=== PATIENT | female | born 1995 | race Caucasian/White ===

== ENCOUNTER 2016-11-13 23:07 | Observation (INO) | payer BC ==
[~2016-11-13] VITALS: Ht 160 cm; Wt 65.8 kg
[2016-11-13] MEDS ORDERED: diphenhdrAMINE HCL 50 MG/1 ML VL ONE (23:11)
[2016-11-13] MEDS ORDERED: diphenhdrAMINE HCL 50 MG/1 ML VL IM ONE (23:15)
[2016-11-13] MEDS ORDERED: SODIUM CHLORIDE 0.9% 1,000 ML IV ONE (23:15)
[2016-11-13] MEDS ORDERED: LORazepam 2MG/ML-1ML VIAL IM ONE (23:15)
[2016-11-14 00:18] LABS: Basophils # (auto) 0 uL; Basophils % (auto) 0.5 % (0.0-2.0); Eosinophils # (auto) 0 uL; Hematocrit 38.6 % (36.0-46.0); Lymphocytes # (auto) 0.5 uL; Lymphocytes % (auto) 8.5 % (10.0-50.0); Mean Corpuscular Hemoglobin 29.9 pg (28.0-32.0); Mean Corpuscular Hgb Conc. 33.8 g/dL (32.0-36.0); Mean Corpuscular Volume 88.5 fL (80.0-100.0); Mean Platelet Volume 10.1 fL (7.4-10.4); Monocytes # (auto) 0.5 uL; Monocytes % (auto) 8.8 % (0.0-12.0); Neutrophils # (auto) 4.5 uL; Neutrophils % (auto) 82.2 % (37.0-80.0); Platelet Count (auto) 199 10^3/uL (140-450); Red Cell Distribution Width 12.1 % (11.6-16.0); White Blood Cell 5.5 10^3/uL (4.4-10.8)
[2016-11-14 00:28] LABS: Albumin 4.1 g/dL (3.4-5.0); Calcium 8.3 mg/dL (8.5-10.1); Potassium 3.2 mmol/L (3.5-5.1)
[2016-11-14 00:37] LABS: Bilirubin, Total 0.7 mg/dL (0.2-1.0); Total Protein 7.7 g/dL (6.4-8.2)
[2016-11-14] MEDS ORDERED: FAMOTIDINE (10MG/ML) 2ML VL IV ONE (01:15)
[2016-11-14] MEDS ORDERED: methylPREDNISolone SOD SUCC 125 MG/2 ML VL IV ONE (01:15)
[2016-11-14] MEDS ORDERED: EPINEPHrine HCL 1 MG/1 ML AMP SC ONE (01:15)
[2016-11-14] MEDS ORDERED: cefTRIAXone 1GM/50ML D5W 50 ML IV ONE (01:15)
[2016-11-14] MEDS ORDERED: ACETAMINOPHEN 500 MG TAB PO ONE (02:15)
[2016-11-14 03:07] VITALS: BP 105/59
== END 2016-11-14 05:06 | disposition home or self-care (01) | DRG 203 ==
LOC: ER 23:20 → OVERFLOW 11-14 02:49 → ER 11-14 05:06
PROVIDERS: ADMIT Emergency Medicine; ATTEND Emergency Medicine
DX: J45.901 Unspecified asthma with (acute) exacerbation (principal); J06.9 Acute upper respiratory infection, unspecified
CPT/HCPCS: 36415; 71010; 80053; 81025; 85025; 96361; 96365; 96372; 96375; 99285; G0378; G0434; J0171; J0696; J1200; J2060; J2930; J3490; J7030